=== PATIENT | male | born 1990 | race Two or more races ===

== ENCOUNTER 2017-05-23 18:35 | Emergency (ER) | payer SELFPAY ==
[~2017-05-23] VITALS: Ht 167.6 cm; Wt 61.2 kg
[2017-05-23 18:47] VITALS: BP 113/76
[2017-05-24] MEDS ORDERED: HYDROcodone-ACET 10/325MG TAB ONE (00:07)
[2017-05-24] MEDS ORDERED: HYDROcodone-ACET 10/325MG TAB PO ONE (01:00)
== END 2017-05-24 02:35 | disposition home or self-care (01) ==
LOC: ER 18:41
DX: S86.112A Strain of other muscle(s) and tendon(s) of posterior muscle group at lower leg level, left leg, initial encounter (principal); S80.12XA Contusion of left lower leg, initial encounter; V28.4XXA Motorcycle driver injured in noncollision transport accident in traffic accident, initial encounter; Y93.89 Activity, other specified; Y99.8 Other external cause status; Y92.410 Unspecified street and highway as the place of occurrence of the external cause
CPT/HCPCS: 73700; 93971

== ENCOUNTER 2017-10-12 18:45 | Emergency (ER) | payer MEDICAID, OTHER ==
[~2017-10-12] VITALS: Ht 167.6 cm; Wt 61.2 kg
[2017-10-12 19:03] VITALS: BP 106/74
[2017-10-12] MEDS ORDERED: ACETAMINOPHEN 325 MG TAB PO ONE ×2 (19:39→19:45)
[2017-10-12] MEDS ORDERED: diphenhdrAMINE HCL 25 MG CAP PO ONE (21:15)
[2017-10-12] MEDS ORDERED: KETOROLAC TROMETH 60MG/2ML VIAL IM ONE (21:15)
== END 2017-10-12 22:09 | disposition home or self-care (01) ==
LOC: ER 18:45
DX: R51 Headache (principal); R11.2 Nausea with vomiting, unspecified
CPT/HCPCS: 96372; 99283; J1885